=== PATIENT | female | born 1940 ===

== ENCOUNTER 2017-06-07 08:45 | Inpatient (IN) | payer OTHER ==
[~2017-06-07] VITALS: Ht 134.6 cm; Wt 48.1 kg
[2017-06-12] MEDS ORDERED: DICLOFENAC POTA50 MG PO (10:11)
[2017-06-14] MEDS ORDERED: XARELTO10 MG PO (08:11)
[2017-06-14] MEDS ORDERED: CEFADROXIL500 MG PO (08:11)
[2017-06-14] MEDS ORDERED: PERCOCET 5-3251 EACH PO (08:11)
== END 2017-06-14 17:24 | DRG 470 ==
LOC: SURH 06-11 06:05 → O/R 06-11 06:05 → SURH 06-11 08:45
PROVIDERS: Orthopaedic Surgery
PROC: 0SRD0J9 Replacement of Left Knee Joint with Synthetic Substitute, Cemented, Open Approach (ICD-10-PCS; principal; 2017-06-11 12:30)
DX: M17.12 Unilateral primary osteoarthritis, left knee (principal); D62 Acute posthemorrhagic anemia; M81.0 Age-related osteoporosis without current pathological fracture; M22.12 Recurrent subluxation of patella, left knee; I10 Essential (primary) hypertension; D47.3 Essential (hemorrhagic) thrombocythemia